=== PATIENT | female | born 1955 | race Caucasian/White ===

== ENCOUNTER 2016-04-13 09:20 | Emergency (ER) | payer OTHER ==
[2016-04-13 09:23] VITALS: TEMP 97.5
[2016-04-13] MEDS ORDERED: ONDANSETRON 4 MG/2 ML VIAL IVP ONE (09:48)
[2016-04-13] MEDS ORDERED: HYDROmorphONE/DILAUDID 1 MG/ML SYR IVP ONE ×2 (09:58→10:22)
--- NOTE | 2016-04-13 10:01 | EDPHY ---
[id number] OF PRESENT ILLNESS: 61-year-old female presents with generalized abdominal pain and vomiting. Onset generalized abdominal pain this morning. The pain is severe and constant. Associated with multiple episodes of vomiting and diarrhea. She also has a firm and tender area of swelling just below her umbilicus. No prior similar symptoms. No fever. REVIEW OF SYSTEMS: Constitutional: No fever, no chills Eyes: No visual changes ENT: No sore throat Respiratory: No cough, no shortness of breath Cardiac: No chest pain Genitourinary: No hematuria, no dysuria Musculoskeletal: No leg pain or swelling Skin: No rash Neurological: No headache, no numbness, no weakness Psychiatric: No depression Past Medical/Surgical History: appendectomy Social History: Smoking Status: Never smoked Physical Exam: General Appearance: Alert, Appears in pain Eyes: Pupils equal and round, no conjunctival pallor or injection ENT, Mouth: Mucous membranes moist Neck: Normal inspection Respiratory: Lungs are clear to auscultation Cardiovascular: Regular rate and rhythm Gastrointestinal: Abdomen is diffusely tender, decreased bowel sounds, firm area of swelling and tenderness in the infraumbilical area Neurological: A&O, nonfocal exam Skin: Warm and dry, no rash Extremities: Nontender, no pedal edema Psychiatric: Mood and affect normal Constitutional: Initial Vital Signs Temperature (C) 36.4 C 04/13/16 09:21 Heart Rate 71 04/13/16 09:21 Respiratory Rate 16 04/13/16 09:21 Blood Pressure 200/102 H 04/13/16 09:21 O2 Sat (%) 94 04/13/16 09:21 O2 Delivery Mode Room Air Allergies/Adverse Reactions: Sulfa (Sulfonamide Antibiotics) Allergy (Verified 01/24/15 11:52) Home Medications: Medication Instructions Recorded Amox Tr/K Clav (Augmentin) 500 mg PO Q8 #21 tab 01/27/15 [Augmentin 500/125 MG TAB (*)] Docusate Sodium [Colace 100 MG (*)] 100 mg PO BID #30 cap 01/27/15 Hydrocodone/APAP 5/325 [[place] 2 tab PO Q4 PRN #30 tab 01/27/15 5/325 (*)] Ibuprofen [Motrin (*)] 600 mg PO QID #30 tab 01/27/15 Medical Decision Making - Diagnostics Imaging: CT scan of the abdomen and pelvis read by Dr. Koenig reveals a ventral hernia and mesenteric edema versus scarring in the right lower quadrant. ED Course/Re-evaluation: This patient presents with an incarcerated ventral hernia. Dilaudid 0.5 mg IV. Gentle pressure was applied to the infraumbilical area for suspected ventral hernia. The ventral hernia was successfully reduced and the pain almost completely resolved. She still had mild abd tenderness. Given mild persistent discomfort, CT scan ordered. CT results discussed with the patient. She is pain-free and the nausea has resolved. Abdomen is soft and nontender. Tolerated oral fluids well. After d/c, pt had an episode of vomiting. No recurrent pain. Possibly secondary to narcotics. Pt wants to go home. Will give Zofran ODT. Warning signs discussed. Differential Diagnosis: Differential diagnosis includes though it is not limited to appendicitis, cholecystitis, diverticulitis, pyelonephritis, bowel perforation, small bowel obstruction. - Data Points Laboratory Results: Laboratory Results 04/13/16 10:35 04/13/16 10:35 04/13/16 10:35 WBC 12.31 H 10^3/uL (3.80-9.50) RBC 5.02 10^6/uL (4.18-5.33) Hgb 13.9 g/dL (12.6-16.3) Hct 43.1 % (38.0-47.0) MCV 85.9 fL (81.5-99.8) MCH 27.7 L pg (27.9-34.1) MCHC 32.3 L g/dL (32.4-36.7) RDW 14.0 % (11.5-15.2) Plt Count 324 10^3/uL (150-400) MPV 8.6 L fL (8.7-11.7) Neut % (Auto) 80.3 H % (39.3-74.2) Lymph % (Auto) 12.5 L % (15.0-45.0) Sullivan % (Auto) 5.2 % (4.5-13.0) Eos % (Auto) 0.9 % (0.6-7.6) Baso % (Auto) 0.4 % (0.3-1.7) Nucleat RBC Rel Count 0.0 % (0.0-0.2) Absolute Neuts (auto) 9.88 H 10^3/uL (1.70-6.50) Absolute Lymphs (auto) 1.54 10^3/uL (1.00-3.00) Absolute Monos (auto) 0.64 10^3/uL (0.30-0.80) Absolute Eos (auto) 0.11 10^3/uL (0.03-0.40) Absolute Basos (auto) 0.05 10^3/uL (0.02-0.10) Absolute Nucleated RBC 0.00 10^3/uL (0-0.01) Immature Gran % 0.7 % (0.0-1.1) Immature Gran # 0.09 10^3/uL (0.00-0.10) Sodium 141 mEq/L (134-144) Potassium 3.9 mEq/L (3.5-5.2) Chloride 106 mEq/L (97-110) Carbon Dioxide 26 mEq/l (22-31) Anion Gap 9 mEq/L (8-16) BUN 13 mg/dL (7-23) Creatinine 0.5 L mg/dL (0.6-1.0) Estimated GFR > 60 Glucose 146 H mg/dL (70-100) Calcium 8.1 L mg/dL (8.5-10.4) Total Bilirubin 0.8 mg/dL (0.1-1.4) Conjugated Bilirubin 0.3 mg/dL (0.0-0.5) Unconjugated Bilirubin 0.5 mg/dL (0.0-1.1) AST 20 IU/L (14-46) ALT 28 IU/L (9-52) Alkaline Phosphatase 123 IU/L (38-126) Total Protein 6.6 g/dL (6.3-8.2) Albumin 3.4 L g/dL (3.5-5.0) Lipase 19.0 L IU/L (23-300) Medications Given: Discontinued Medications Hydromorphone HCl (Dilaudid) 0.5 mg IVP EDNOW ONE Stop: 04/13/16 09:59 Last Admin: 04/13/16 10:15 Dose: 0.5 mg Hydromorphone HCl (Dilaudid) 0.5 mg IVP EDNOW ONE Stop: 04/13/16 10:23 Last Admin: 04/13/16 10:40 Dose: 0.5 mg Ondansetron HCl (Zofran) 4 mg IVP EDNOW ONE Stop: 04/13/16 09:49 Last Admin: 04/13/16 09:55 Dose: 4 mg Ondansetron HCl (Zofran Odt) 4 mg PO EDNOW ONE Stop: 04/13/16 14:45 Last Admin: 04/13/16 14:56 Dose: 4 mg Ondansetron HCl (Zofran Odt 4 Mg Prepack#2) 1 btl TAKEHOME EDNOW ONE Stop: 04/13/16 14:45 Last Admin: 04/13/16 14:56 Dose: 1 btl Departure - Departure Disposition: Home, Routine, Self-Care Clinical Impression: Ventral hernia with bowel obstruction Condition: Good Instructions: Ventral Hernia (ED), Ondansetron (By mouth) Additional Instructions: Avoid straining and heavy lifting. Take Zofran 1 tablet under the tongue every 6 hours as needed for nausea. Return for recurrent abdominal pain, persistent vomiting or any concerns. Your blood pressure was high today. Follow up with your primary care physician for blood pressure recheck. Referrals: Symone Enriquez MD [Medical Doctor] - As per Instructions Juanpablo Scott MD [Primary Care Provider] - 2-3 days, call for appt.
[2016-04-13 10:52] LABS: % IMMATURE GRANULYOCYTES 0.7 % (0.0-1.1); ABSOLUTE IMMATURE GRANULOCYTES 0.09 10^3/uL (0.00-0.10); ADD DIFF? NO; ADD MORPH? NO; ADD SCAN? NO; ATYPICAL LYMPHOCYTE FLAG 0 (0-99); FRAGMENT RBC FLAG 0 (0-99); HEMATOCRIT 43.1 % (38.0-47.0); HEMOGLOBIN 13.9 g/dL (12.6-16.3); LEFT SHIFT FLG 0 (0-99); LIPEMIA HEMOLYSIS FLAG 80 (0-99); MEAN CELL HEMOGLOBIN 27.7 pg (27.9-34.1); MEAN CELL HEMOGLOBIN CONCENTR. 32.3 g/dL (32.4-36.7); MEAN CELL VOLUME 85.9 fL (81.5-99.8); MEAN PLATELET VOLUME 8.6 fL (8.7-11.7); PLATELET CLUMPS FLAG 0 (0-99); PLATELET COUNT 324 10^3/uL (150-400); RED BLOOD CELL COUNT 5.02 10^6/uL (4.18-5.33)
[2016-04-13 11:07] LABS: ALANINE AMINOTRANSFERASE 28 IU/L (9-52); ALBUMIN 3.4 g/dL (3.5-5.0); ALKALINE PHOSPHATASE 123 IU/L (38-126); ANION GAP 9 mEq/L (8-16); ASPARTATE AMINOTRANSFERASE 20 IU/L (14-46); BILIRUBIN,TOTAL 0.8 mg/dL (0.1-1.4); BILIRUBIN-CONJUGATED 0.3 mg/dL (0.0-0.5); BILIRUBIN-UNCONJUGATED 0.5 mg/dL (0.0-1.1); CALCIUM 8.1 mg/dL (8.5-10.4); CARBON DIOXIDE 26 mEq/l (22-31); CHLORIDE 106 mEq/L (97-110); CREATININE 0.5 mg/dL (0.6-1.0); GLOMERULAR FILTRATION RATE > 60; GLUCOSE 146 mg/dL (70-100); POTASSIUM 3.9 mEq/L (3.5-5.2); SODIUM 141 mEq/L (134-144); TOTAL PROTEIN 6.6 g/dL (6.3-8.2)
[2016-04-13] MEDS ORDERED: IOPAMIDOL (ISOVUE-300) 100 ML BTL IV ONE (11:16)
--- NOTE | 2016-04-13 13:09 | CT ---
CT Scan of the Abdomen and Pelvis (With Contrast) Clinical Indications: Abdominal pain and vomiting, history of kidney stones, appendectomy and C-sect ion Technique: 90 mL of Isovue 300 were given intravenously by machine power injection. [facility] was performed from the diaphragm to the symphysis pubis. Dose reduction techniques w ere utilized. Comparison: January 24, 2015 Findings: Abdomen: The patient is obese. There is a chronic small hiatal hernia. The lung bases are clear, and there is no pleural fluid. The liver is normal. The biliary ducts and gallbladder are unremarkable. The pancreas and spleen are normal. The adrenal glands and kidneys are normal. There is specifical ly no evidence for nephro or ureterolithiasis or hydronephrosis or hydroureter.. No adenopathy and n o masses are found. No aneurysm of the abdominal aorta.No ascites or evidence of bowel obstruction. Pelvis: There is right upper pelvic peritoneal fat edema predominantly posterior to a surgical suture line. Directly called caudal to this area of edema is a small bowel loop that demonstrates subtle pr ominence compared to other small bowel loops. There is no small bowel obstruction. There is a new midline infraumbilical peritoneal uncomplicated fat hernia. The urinary bladder is unr emarkable. No stones are seen in the urinary bladder. No free fluid in the pelvis. There is a previo usly present, large fundal fibroid. Bowel loops are normal.No evidence for pelvic abscess. Impression: 1. Stable small hiatal hernia. No evidence for bowel obstruction. 2. Edema in the right lower quadrant versus scarring related to the patient's prior ruptured appendix and surgery. Results called to Dr. Roblero. General information for patients regarding this examination can be found at [email or web address]. If you have questions or comments about this report, please contact me at [phone] (hospital) or [phone] (cell). Out
[2016-04-13 14:41] VITALS: BP 162/76; PULSE 84; RESP 18; O2SAT 93
[2016-04-13] MEDS ORDERED: ONDANSETRON DISINTEGRATING 4 MG TAB PO ONE (14:44)
[2016-04-13] MEDS ORDERED: ONDANSETRON 4MG PREPACK#2 BTL TAKEHOME ONE (14:44)
== END 2016-04-13 14:30 | disposition home or self-care (01) ==
DX: K43.6 Other and unspecified ventral hernia with obstruction, without gangrene (principal)
CPT/HCPCS: 96374; J1170; J2405; Q9967

== ENCOUNTER 2016-04-13 17:28 | Inpatient (IN) | payer OTHER ==
--- NOTE | 2016-04-13 18:08 | EDPHY ---
H & P Stated Complaint: bounce-back AP, n/v, abd hernia "popped out." HPI/ROS: HPI CHIEF COMPLAINT: Abdominal pain, nausea, vomiting HISTORY OF PRESENT ILLNESS: this patient very pleasant 61-year-old female, she tells me that she has no significant medical history, does not take any daily medication. She does have a surgical history of a appendectomy as well as a . She was seen here earlier in the morning for abdominal pain nausea vomiting at that time she had a CT scan that showed a umbilical hernia. She felt better after fluids nausea medicine pain medicine she went home shortly after arriving home she developed worsening midline abdominal pain nausea vomiting again. The pain persisted so she decided come back to the emergency room. Past Medical History:Denies significant medical history Past Surgical History: ,appendectomy Social History: Denies use of drugs alcohol tobacco products, lives in [place], unemployed Family History: Noncontributory ROS REVIEW OF SYSTEMS: A comprehensive 10 point review of systems is otherwise negative aside from elements mentioned in the history of present illness. Exam Constitutional triage nursing summary reviewed, vital signs reviewed, awake/ alert. Eyes normal conjunctivae and sclera, EOMI, PERRLA. HENT normal inspection, atraumatic, moist mucus membranes, no epistaxis, neck supple/ no meningismus, no raccoon eyes. Respiratory clear to auscultation bilaterally, normal breath sounds, no respiratory distress, no wheezing. Cardiovascular rate normal, regular rhythm, no murmur, no edema, distal pulses normal. Gastrointestinal abdomen is soft however tenderness to palpation around her umbilicus and ventral hernia it is hard and tender, no rebound, no guarding, Silent bowel sounds , no distension, no pulsatile mass. Genitourinary no CVA tenderness. Musculoskeletal no midline vertebral tenderness, full range of motion, no calf swelling, no tenderness of extremities, no meningismus, good pulses, neurovascularly intact. Skin pink, warm, & dry, no rash, skin atraumatic. Neurologic awake, alert and oriented x 3, AAOx3, moves all 4 extremities equally, motor intact, sensory intact, CN II-XII intact, normal cerebellar, normal vision, normal speech. Psychiatric normal mood/affect. Heme/Lymph/Immune no lymphadenopathy. Differential diagnosis includes but is not limited to and in no particular order : incarcerated hernia, strangulated hernia, Bowel obstruction, appendicitis, gallbladder disease, diverticulitis, colitis, enteritis, perforated viscus, gastritis, GERD, esophagitis, urinary tract infection, pyelonephritis, kidney stones Medical Decision Making: The patient had an IV established will obtain blood work, will perform a KUB to make sure there is no evidence of bowel obstruction she will have an ultrasound of this hernia. I did try to reduce it at bedside over she has exquisite tenderness. She does not tolerate me pressing on it. I have ordered her IV fluids pain medicine and nausea medicine. Check basic blood work as well. I will also consult surgery. Re-evaluation: 1858: I spoke with Dr. Enriquez who will come and see and evaluate the patient. NPO. ED x-ray upright KUB: Shows normal bowel gas pattern, no evidence of obstruction. No free air under the diaphragms. Image interpreted by myself. Ultrasound of the Abdomen for ventral hernia. The results of the study are this now shows intestines or bowel in the fat ventral hernia was unable to reduce with ultrasound pressure I discussed the results of this study with the radiologist Dr. Suárez Source: Patient - Personal History Current Tetanus/Diphtheria Vaccine: Unsure Current Tetanus Diphtheria and Acellular Pertussis (TDAP): Unsure - Medical/Surgical History Hx Asthma: No Hx Chronic Respiratory Disease: No Hx Diabetes: No Hx Cardiac Disease: No Hx Renal Disease: No Hx Cirrhosis: No Hx Alcoholism: No Hx HIV/AIDS: No Hx Splenectomy or Spleen Trauma: No Other PMH: appy, Kidney stones. Csection - Social History Smoking Status: Never smoked Constitutional: Initial Vital Signs Temperature (C) 36.6 C 04/13/16 17:39 Heart Rate 87 04/13/16 17:39 Respiratory Rate 16 04/13/16 17:39 Blood Pressure 201/93 H 04/13/16 17:39 O2 Sat (%) 90 L 04/13/16 17:39 O2 Delivery Mode Nasal Cannula O2 (L/minute) 2 Allergies/Adverse Reactions: Sulfa (Sulfonamide Antibiotics) Allergy (Verified 04/13/16 17:37) Home Medications: Medication Instructions Recorded Acetaminophen [Tylenol 325mg (*)] 325 mg PO DAILY PRN 04/14/16 Amoxicillin/Clavulanate Pot 875 mg PO BID #14 tab 04/15/16 [Augmentin 875 MG TAB (*)] Hydrocodone/APAP 5/325 [[place] 1 - 2 tab PO Q4HRS PRN #14 tab 04/15/16 5/325 (*)] Medical Decision Making - Data Points Laboratory Results: Laboratory Results 04/14/16 08:37 04/13/16 18:16 Microbiology Results: MICROBIOLOGY 04/14/16 06:20 Urine,Clean Catch Urine Culture - Preliminary Gram Neg Myles Lactose Pipe Finisher Medications Given: Discontinued Medications Acetaminophen/Hydrocodone Bitart ([place] 5/325) 1 - 2 tab PO Q4HRS PRN PRN Reason: Pain, Moderate Able to Take PO Stop: 04/23/16 22:24 Last Admin: 04/15/16 16:09 Dose: 1 tab Hydromorphone HCl (Dilaudid) 0.5 mg IVP EDNOW ONE Stop: 04/13/16 18:34 Last Admin: 04/13/16 19:13 Dose: 0.5 mg Sodium Chloride (Ns) 1,000 mls @ 0 mls/hr IV ONCE ONE PRN Reason: Wide Open Stop: 04/13/16 18:34 Last Admin: 04/13/16 19:13 Dose: 1,000 mls Cefazolin Sodium/Dextrose (Ancef 2 Gm (Premix)) 100 mls @ 200 mls/hr IV ONCE ONE Stop: 04/13/16 20:59 Last Admin: 04/14/16 00:23 Dose: Not Given Potassium Chloride/Dextrose/Sod Cl (D5w 1/2 Ns W/ 20 Kcl/L) 1,000 mls @ 100 mls /hr IV CONT IVA Stop: 10/10/16 22:29 Last Admin: 04/14/16 09:36 Dose: 1,000 mls Ertapenem 1 gm/ Sodium (Chloride) 100 mls @ 200 mls/hr IV DAILY IVA PRN Reason: Protocol Stop: 05/14/16 14:29 Last Admin: 04/15/16 07:53 Dose: 100 mls Morphine Sulfate (Morphine) 2 mg IVP Q1HR PRN PRN Reason: Pain, Severe Unable to Take PO Stop: 04/23/16 22:24 Last Admin: 04/14/16 02:29 Dose: 2 mg Ondansetron HCl (Zofran) 4 mg IVP EDNOW ONE Stop: 04/13/16 18:34 Last Admin: 04/13/16 19:14 Dose: 4 mg Senna/Docusate Sodium (Senokot-S) 1 - 2 tab PO BID IVA PRN Reason: Protocol Stop: 10/11/16 08:59 Last Admin: 04/15/16 07:54 Dose: 2 tab Departure - Departure Disposition: [facility] Inpatient Acute Clinical Impression: Incarcerated hernia, Abdominal pain Condition: Good
[2016-04-13] MEDS ORDERED: ONDANSETRON 4 MG/2 ML VIAL IVP ONE (18:33)
[2016-04-13] MEDS ORDERED: HYDROmorphONE/DILAUDID 1 MG/ML SYR IVP ONE (18:33)
[2016-04-13] MEDS ORDERED: NS 1,000 ML IV ONE (18:33)
[2016-04-13 18:40] LABS: % IMMATURE GRANULYOCYTES 0.8 % (0.0-1.1); ABSOLUTE IMMATURE GRANULOCYTES 0.14 10^3/uL (0.00-0.10); ADD DIFF? NO; ADD MORPH? NO; ADD SCAN? NO; ATYPICAL LYMPHOCYTE FLAG 0 (0-99); FRAGMENT RBC FLAG 0 (0-99); HEMATOCRIT 48.1 % (38.0-47.0); HEMOGLOBIN 15.7 g/dL (12.6-16.3); LEFT SHIFT FLG 0 (0-99); LIPEMIA HEMOLYSIS FLAG 80 (0-99); MEAN CELL HEMOGLOBIN 27.6 pg (27.9-34.1); MEAN CELL HEMOGLOBIN CONCENTR. 32.6 g/dL (32.4-36.7); MEAN CELL VOLUME 84.7 fL (81.5-99.8); MEAN PLATELET VOLUME 8.7 fL (8.7-11.7); PLATELET CLUMPS FLAG 0 (0-99); PLATELET COUNT 393 10^3/uL (150-400); RED BLOOD CELL COUNT 5.68 10^6/uL (4.18-5.33); RED CELL DISTRIBUTION WIDTH 13.6 % (11.5-15.2)
[2016-04-13 18:42] LABS: PROTIME(PATIENT) 13.1 SEC (12.0-15.0)
[2016-04-13 18:43] LABS: APTT 28.1 SEC (23.0-38.0)
[2016-04-13 18:45] LABS: ALANINE AMINOTRANSFERASE 34 IU/L (9-52); ALBUMIN 4.1 g/dL (3.5-5.0); ALKALINE PHOSPHATASE 161 IU/L (38-126); ANION GAP 11 mEq/L (8-16); ASPARTATE AMINOTRANSFERASE 26 IU/L (14-46); BILIRUBIN-CONJUGATED 0.3 mg/dL (0.0-0.5); BILIRUBIN-UNCONJUGATED 0.7 mg/dL (0.0-1.1); CALCIUM 8.6 mg/dL (8.5-10.4); CARBON DIOXIDE 26 mEq/l (22-31); CHLORIDE 100 mEq/L (97-110); CREATININE 0.4 mg/dL (0.6-1.0); GLOMERULAR FILTRATION RATE > 60; GLUCOSE 170 mg/dL (70-100); POTASSIUM 4.4 mEq/L (3.5-5.2); SODIUM 137 mEq/L (134-144); TOTAL PROTEIN 7.9 g/dL (6.3-8.2)
--- NOTE | 2016-04-13 19:14 | DX ---
Abdomen single view 18:22 Hours Indication: Abdominal pain. Comparison: CT abdomen pelvis dated April 13, 2016 and January 24, 2015 Findings: Contrast within the urinary bladder is within normal limit for recent contrasted CT of the abdomen pelvis. Bowel pattern within normal limit. Mildly enlarged liver unchanged. Lung bases clear. No pneumoperitoneum. Impression: No pneumoperitoneum. Normal bowel pattern.
--- NOTE | 2016-04-13 19:41 | US ---
Abdominal wall ultrasound to evaluate periumbilical hernia Technique: The infraumbilical region was scanned with a high-resolution linear transducer by the sono grapher utilizing graded compression. Comparison: CT abdomen and pelvis performed earlier today. Findings: The infra-umbilical hernia now contains fluid and a nonreducible loop of bowel. The bowel c ontains gas, which results in refraction artifact and obscures the neck of the hernia. Color Doppler imaging reveals blood flow within the bowel. Impression: Infraumbilical hernia contains nonreducible loops of bowel. Comment: Results were discussed with Dr. Michael Ibarra at 7:25 p.m. on April 13, 2016.
[2016-04-13] MEDS ORDERED: ceFAZolin 2 GM/DEXTROSE 100 ML IV ONE (20:30)
[2016-04-13] MEDS ORDERED: CEFAZOLIN 2 GM/DEXTROSE/100 ML BAG IV ONE (20:31)
--- NOTE | 2016-04-13 20:31 | GHP ---
[f rep st] HISTORY AND PHYSICAL DATE OF ADMISSION: 04/13/2016 DATE OF EVALUATION: 04/13/2016 CHIEF COMPLAINT: Incarcerated ventral hernia. HISTORY OF PRESENT ILLNESS: The patient is a 61-year-old woman who woke up this morning with a mass in her abdomen and abdominal pain. She presented to the emergency room. She had a CT obtained which showed a fat containing ventral hernia. It was reduced. She returned back home and later began hav ing nausea, vomiting, increased pain, and a hard mass. She returned to the emergency room and was fo und to have bowel within the hernia, again, it was reduced. PAST SURGICAL HISTORY: section, appendectomy and kidney stone extraction. MEDICATIONS: None. ALLERGIES: Sulfa. SOCIAL HISTORY: Denies tobacco, alcohol or illegal drugs. FAMILY HISTORY: Noncontributory. REVIEW OF SYSTEMS: Significant for nausea, vomiting and abdominal pain. Otherwise, 10-point review of systems negative. PHYSICAL EXAMINATION: VITAL SIGNS: 36.9, 70, 169/89, 14, 94%. GENERAL: Pleasant woman, lying in b ed. at bedside. She is obese. HEENT: Normocephalic. No gross hearing deficits. Mucous m embranes moist. Pupils equal and round. No scleral icterus. LUNGS: Clear to auscultation bilatera lly. No increased work of breathing. CARDIAC: Regular rate. No peripheral edema. ABDOMEN: Bowel sounds are present. She has a hernia beneath the incision at her umbilicus. It is tender in this a verenice. There are no overlying skin changes. Her vertical incision from her is well healed. No hernias palpated in that area. SKIN: Warm and dry. Results reviewed. Her white blood cell count was 17,000. Creatinine is 0.4. I personally reviewed the results and the images of her CT scan, and agree with the stated findings. I also reviewed the r esults of her ultrasound. IMPRESSION AND PLAN: The patient is a 61-year-old with an incarcerated ventral hernia. It is curren tly reduced. Since she has returned to the emergency room twice in 1 day, especially with 1 of the i maging studies showing non-reducible bowel, I will take her to the operating room for ventral hernia repair. I may or may not use mesh depending on the findings. The risks and benefits including, but not limited to, stroke, heart attack, , blood clots, infection, bleeding, damage to surrounding structures, possibility of needing bowel resection were all discussed. She had her questions answere d to her satisfaction. /[id number]/MODL
[2016-04-13] MEDS ORDERED: fentaNYL 100 MCG/2 ML INJ ONE ×3 (20:47→23:16)
[2016-04-13] MEDS ORDERED: PROPOFOL 200 MG/20 ML VIAL ONE (20:47)
[2016-04-13] MEDS ORDERED: SUCCINYLCHOLINE CHLORIDE*ANESTHESIA ONLY*200 MG/10 ML SYR IVP ONE (20:59)
[2016-04-13] MEDS ORDERED: ROCURONIUM 50 MG/5 ML VIAL ONE (20:59)
[2016-04-13] MEDS ORDERED: DEXAMETHASONE 4 MG/ML VIAL ONE (21:00)
[2016-04-13] MEDS ORDERED: ONDANSETRON 4 MG/2 ML VIAL ONE (21:00)
[2016-04-13] MEDS ORDERED: BUPIVACAINE 0.5% 30 ML SDV ONE (21:07)
[2016-04-13] MEDS ORDERED: SUGAMMADEX SODIUM 200 MG/2 ML VIAL IVP ONE (21:29)
[2016-04-13] MEDS ORDERED: PROPOFOL/EMULSION 500 MG/50 ML BOTTLE IV ONE (21:33)
[2016-04-13] MEDS ORDERED: LABETALOL HCL 5 MG/ML 20 ML MDV ONE (21:44)
[2016-04-13] MEDS ORDERED: ACETAMINOPHEN 325 MG TAB PO PRN (22:25)
[2016-04-13] MEDS ORDERED: LACTULOSE 20 GM/30 ML UDCUP PO PRN (22:26)
[2016-04-13] MEDS ORDERED: BISACODYL 10 MG SUPP PR PRN (22:26)
[2016-04-13] MEDS ORDERED: MAGNESIUM HYDROXIDE 30 ML UDCUP PO PRN (22:26)
[2016-04-13] MEDS ORDERED: POLYETHYLENE GLYCOL 3350 17 GM PKT PO PRN (22:26)
[2016-04-13] MEDS ORDERED: ONDANSETRON 4 MG/2 ML VIAL IVP PRN (22:26)
--- NOTE | 2016-04-13 22:28 | POSTOPPROG ---
Post Op Note Date of Operation: 04/13/16 Surgeon: Symone Enriquez Anesthesiologist: freeman Anesthesia: GET(General Endotracheal) Pre-op Diagnosis: umbilical hernia Post-op Diagnosis: same Indication: 61 yo with umbilical hernia repair Procedure: umbilical hernia repair with mesh Findings: incarcerated omentum Inf/Abcess present in the surg proc area at time of surgery?: No EBL: 50-100
[2016-04-13] MEDS: D5W 1/2 NS W/ 20 KCl/L 1,000 ML IV SCH (23:52)
--- NOTE | 2016-04-14 05:17 | GOP ---
[f rep st] OPERATIVE REPORT DATE OF OPERATION: 04/13/2016 SURGEON: Symone Enriquez MD ANESTHESIA: Ronal Wade MD/general. PREOPERATIVE DIAGNOSIS: Incarcerated ventral hernia. POSTOPERATIVE DIAGNOSIS: Incarcerated ventral hernia. PROCEDURE PERFORMED: Open ventral hernia repair with mesh. FINDINGS: Incarcerated Omentum, bowel is pink SPECIMENS: None. ESTIMATED BLOOD LOSS: 50 cc. INDICATIONS: The patient is a 61-year-old woman, with a history of a perforated appendectomy, who developed a mass in her umbilicus this a.m. It was reduced but returned with associated nausea and vomiting. She returned to the ER and bowel was contained within the hernia. DESCRIPTION OF PROCEDURE: The patient was brought into the operating room, placed supine on the table, and general anesthesia was administered. Her abdomen was prepped and draped in the usual sterile fashion. I infiltrated all sites with 0.5% Marcaine prior to making incisions. Made an incision beneath her umbilicus. I dissected down through the subcutaneous tissues. I encountered a large amount of preperitoneal fat followed by the hernia sac. I opened the hernia sac and there was incarcerated omentum. I had to excise some omentum in order to reduce it. There were a couple of large feeding vessels that had to be suture ligated. Hemostasis was achieved. Once the omentum was cleared pre peritoneal and intraperitoneal, I then could identify the fascial edges. I closed the fascia with #1 PDS. I placed a piece of composite mesh in the preperitoneal space and sutured this into place with 0 Ethibond. I closed the peritoneum with 0 Ethibond. I closed the skin with 3-0 Vicryl followed by 4 -0 Monocryl. Mastisol, Steri-Strips, and a sterile dressing were applied. She was awakened in the operating room, extubated, transferred to PACU in stable condition. /[id number]/MODL MTDD
[2016-04-14 06:18] LABS: COLOR YELLOW; LEUKOCYTE ESTERASE,URINE NEGATIVE (NEGATIVE); NITRITE,URINE NEGATIVE (NEGATIVE)
[2016-04-14 06:20] LABS: BACTERIA 3+ /hpf (NONE SEEN); MUCUS TRACE /lpf (NONE-1+)
[2016-04-14 08:46] LABS: % IMMATURE GRANULYOCYTES 0.5 % (0.0-1.1); ABSOLUTE IMMATURE GRANULOCYTES 0.09 10^3/uL (0.00-0.10); ADD DIFF? NO; ADD MORPH? NO; ADD SCAN? NO; ATYPICAL LYMPHOCYTE FLAG 0 (0-99); FRAGMENT RBC FLAG 0 (0-99); HEMATOCRIT 38.3 % (38.0-47.0); HEMOGLOBIN 12.6 g/dL (12.6-16.3); LEFT SHIFT FLG 0 (0-99); LIPEMIA HEMOLYSIS FLAG 80 (0-99); MEAN CELL HEMOGLOBIN CONCENTR. 32.9 g/dL (32.4-36.7); MEAN CELL VOLUME 85.1 fL (81.5-99.8); MEAN PLATELET VOLUME 8.5 fL (8.7-11.7); PLATELET CLUMPS FLAG 0 (0-99); PLATELET COUNT 329 10^3/uL (150-400); RED CELL DISTRIBUTION WIDTH 13.8 % (11.5-15.2)
[2016-04-14] MEDS: SENNOSIDES/DOCUSATE SODIUM TAB PO SCH ×2 (09:06→20:37)
[2016-04-14] MEDS: HYDROCODONE/APAP 5/325 TAB PO PRN ×2 (09:06→20:37)
[2016-04-14] MEDS: D5W 1/2 NS W/ 20 KCl/L 1,000 ML IV SCH (09:36)
--- NOTE | 2016-04-14 10:41 | SOAPPROG ---
SOAP Progress Note Assessment/Plan: Assessment: POD#1 s/p repair of incarcerated umbilical hernia Pain with movement Tolerating regular diet Wean O2 Ambulate and IS, up to chair Likely home in am Seen with Dr. Enriquez S: feeling better than yesterday. eating without difficulty. pain with movement O: laying in bed, uncomfortable, at bedside supplemental o2 no increased wob +BS, soft, nontender, mildly distended. Dressing intact 04/14/16 12:26 Objective: Vital Signs Temp Pulse Resp BP Pulse Ox 36.9 C 80 21 H 117/66 94 04/14/16 07:30 04/14/16 07:30 04/14/16 07:30 04/14/16 07:30 04/14/16 07:30 Laboratory Results 04/14/16 08:37 04/13/16 04/14/16 04/15/16 05:59 05:59 05:59 Intake Total 2083 Output Total 865 Balance 1218 PT 13.1 SEC (12.0-15.0) 04/13/16 18:16 INR 1.00 (0.83-1.16) 04/13/16 18:16 ICD10 Worksheet Patient Problems: Problems Problem Status Diagnosed Abdominal pain Acute Incarcerated hernia Acute Appendicitis with peritoneal abscess Acute
[2016-04-14] MEDS: ERTAPENEM 1 GM in NS 100 ML IV SCH (14:48)
[2016-04-14 23:58] VITALS: RESP 18
[2016-04-15 04:04] VITALS: O2SAT 97
[2016-04-15 05:58] LABS: % IMMATURE GRANULYOCYTES 0.7 % (0.0-1.1); ADD DIFF? NO; ADD MORPH? NO; ADD SCAN? NO; ATYPICAL LYMPHOCYTE FLAG 0 (0-99); FRAGMENT RBC FLAG 0 (0-99); HEMOGLOBIN 11.3 g/dL (12.6-16.3); LEFT SHIFT FLG 10 (0-99); LIPEMIA HEMOLYSIS FLAG 80 (0-99); MEAN CELL HEMOGLOBIN CONCENTR. 32.3 g/dL (32.4-36.7); MEAN CELL VOLUME 86.6 fL (81.5-99.8); MEAN PLATELET VOLUME 8.8 fL (8.7-11.7); PLATELET CLUMPS FLAG 0 (0-99); PLATELET COUNT 302 10^3/uL (150-400); RED BLOOD CELL COUNT 4.04 10^6/uL (4.18-5.33); RED CELL DISTRIBUTION WIDTH 14.4 % (11.5-15.2)
[2016-04-15 06:24] LABS: ANION GAP 8 mEq/L (8-16); CALCIUM 7.7 mg/dL (8.5-10.4); CARBON DIOXIDE 28 mEq/l (22-31); CHLORIDE 102 mEq/L (97-110); CREATININE 0.5 mg/dL (0.6-1.0); GLOMERULAR FILTRATION RATE > 60; GLUCOSE 134 mg/dL (70-100); POTASSIUM 3.9 mEq/L (3.5-5.2); SODIUM 138 mEq/L (134-144)
[2016-04-15 07:23] VITALS: BP 139/72; PULSE 81; TEMP 98.6
[2016-04-15] MEDS: ERTAPENEM 1 GM in NS 100 ML IV SCH (07:53)
[2016-04-15] MEDS: SENNOSIDES/DOCUSATE SODIUM TAB PO SCH (07:54)
[2016-04-15] MEDS: HYDROCODONE/APAP 5/325 TAB PO PRN ×2 (07:54→16:09)
--- NOTE | 2016-04-15 16:07 | SOAPPROG ---
SOAP Progress Note Assessment/Plan: Assessment: Assessment: POD#2 s/p repair of incarcerated umbilical hernia Pain with movement Tolerating regular diet UTI present prior to admission On Abx for possible bacterial translocation and UTI Ambulate and IS, up to chair S: feeling better than yesterday. eating without difficulty. pain with movement O: laying in bed, uncomfortable, at bedside no increased wob +BS, soft, nontender, mildly distended. Incision cdi Plan: 04/15/16 16:06 Objective: Vital Signs Temp Pulse Resp BP Pulse Ox 37 C 81 18 139/72 H 97 04/15/16 07:23 04/15/16 07:23 04/15/16 07:23 04/15/16 07:23 04/15/16 07:23 Laboratory Results 04/15/16 04:55 04/15/16 04:55 04/14/16 04/15/16 04/16/16 05:59 05:59 05:59 Intake Total 400 Output Total 700 Balance -300 PT 13.1 SEC (12.0-15.0) 04/13/16 18:16 INR 1.00 (0.83-1.16) 04/13/16 18:16 ICD10 Worksheet Patient Problems: Problems Problem Status Diagnosed Abdominal pain Acute Incarcerated hernia Acute Appendicitis with peritoneal abscess Acute
--- NOTE | 2016-04-21 10:09 | GDS ---
[f rep st] DISCHARGE SUMMARY ADMITTING DIAGNOSIS: Incarcerated umbilical hernia. SECONDARY DIAGNOSIS: None. REASON FOR ADMISSION: The patient is a 61-year-old woman who presented to the ER with abdominal pain , nausea, and vomiting. She was found to have an incarcerated umbilical hernia. She was admitted fo r surgical intervention, pain control and return of bowel function. HOSPITAL COURSE: She presented to the emergency room on 04/13/2016 with abdominal pain. She was fou nd to have a reducible hernia. She was discharged home and returned to the ER later that afternoon w ith a recurrent hernia and worsening pain. She was taken to the operating room by Dr. Enriquez on 04/13 for open umbilical hernia repair with mesh. At the time of surgery, she was found to have an i ncarcerated omentum. Postoperatively, her diet was advanced as tolerated. She was able to ambulate without assistance. Her pain was controlled with oral pain medication and she was stable for dischar ge. By postoperative day #2. CONDITION: She is being discharged home in stable condition. Pain is controlled with oral pain medi cation. Tolerating regular diet, ambulating independently. DISCHARGE MEDICATIONS: She was instructed to resume home medications. Please see EMR for further de tail. She was given a prescription for [place]. DISCHARGE INSTRUCTIONS AND FOLLOWUP: She will follow up with Dr. Symone Enriquez in 2 weeks. She unders tands to avoid heavy lifting, pushing, or pulling for 6 weeks after surgery. She may shower without restrictions. She understands to call our office with any worsening symptoms, questions or concerns. /[id number]/MODL
== END 2016-04-15 17:09 | disposition home or self-care (01) | DRG 355 ==
LOC: INTOOBSV 19:47 → F3E 23:27 → OBSVTOIN 04-14 10:40
PROVIDERS: ADMIT Surgery; ATTEND Surgery
PROC: 0WUF0JZ Supplement Abdominal Wall with Synthetic Substitute, Open Approach (ICD-10-PCS; principal; 2016-04-13 20:30)
DX: K43.6 Other and unspecified ventral hernia with obstruction, without gangrene (principal)
CPT/HCPCS: 96374; C1781; G0378; J0330; J0690; J1100; J1170; J1335; J2405; J2704; J3010; J3490